=== PATIENT | male | born 1990 | race Hispanic/Latino ===

== ENCOUNTER 2021-09-22 08:51 | Emergency (ER) | payer SELFPAY ==
[~2021-09-22] VITALS: Ht 165.1 cm; Wt 75.0 kg
[2021-09-22 08:58] VITALS: BP 137/79
[2021-09-22] MEDS ORDERED: TESSALON PERLE100 MG PO (10:02)
== END 2021-09-22 10:18 | disposition home or self-care (01) | DRG 153 ==
LOC: ED 08:51
DX: J06.9 Acute upper respiratory infection, unspecified (principal); Z20.822 Contact with and (suspected) exposure to COVID-19